=== PATIENT | male | born 1975 | race African-American/Black ===

== ENCOUNTER 2021-07-02 14:28 | Emergency (ER) | payer MEDICARE ==
[~2021-07-02] VITALS: Ht 175.3 cm; Wt 68.2 kg
[~2021-07-02 14:28] MED LIST: DIVA-112 PO; GABA-1201 PO; LEVO250T75 PO; LURA40TA2 PO; QUET100T PO
[2021-07-02 14:29] VITALS: BP 122/80
== END 2021-07-02 17:00 | disposition home or self-care (01) ==
LOC: EMS 14:39
DX: R05 Cough (principal); R50.9 Fever, unspecified; F20.9 Schizophrenia, unspecified; F17.210 Nicotine dependence, cigarettes, uncomplicated; F12.90 Cannabis use, unspecified, uncomplicated; F19.90 Other psychoactive substance use, unspecified, uncomplicated
CPT/HCPCS: 71046; 99283

== ENCOUNTER 2023-05-14 14:31 | Emergency (ER) | payer MEDICARE, MEDICAID ==
[~2023-05-14] VITALS: Ht 180.3 cm; Wt 90.9 kg
[2023-05-14 14:33] VITALS: BP 111/82; PULSE 115; RESP 18; TEMP 98.2
== END 2023-05-14 15:35 | disposition home or self-care (01) ==
LOC: EMS 14:31
DX: F11.10 Opioid abuse, uncomplicated (principal); F20.9 Schizophrenia, unspecified; F15.10 Other stimulant abuse, uncomplicated; F17.210 Nicotine dependence, cigarettes, uncomplicated; F12.90 Cannabis use, unspecified, uncomplicated
CPT/HCPCS: 99281; Z7502